=== PATIENT | male | born 1960 | race African-American/Black ===

== ENCOUNTER 2018-03-07 12:02 | Inpatient (IN) | payer OTHER ==
[2018-03-07] MEDS: CEFAZOLIN 2 GM/50 ML (PMX) 50 ML IVPB ×2 (06:00→19:59)
[2018-03-07] MEDS: TRANEXAMIC ACID 1,000 MG in NS 100 ML INTRA-OP X1 IVPB (06:00)
[2018-03-07] MEDS: LACTATED RINGER'S 1,000 ML IV* (06:00)
[2018-03-07] MEDS: ACETAMINOPHEN 500 MG TAB PO (06:00)
[~2018-03-07 12:02] MED LIST: GLYCOPYRROLATE 0.4 MG INJ; NEOSTIGMINE 3 MG/3 ML SYRINGE; ROCURONIUM 50 MG INJ; SEVOFLURANE 15 MIN
[2018-03-07] MEDS: DEXAMETHASONE 4 MG/ML 1 ML INJ IV (13:19)
[2018-03-07] MEDS: ACETAMINOPHEN 1000MG/100ML IV 100 ML IVPB (13:19)
[2018-03-07] MEDS ORDERED: CEFAZOLIN 1 GM INJ ×2 (13:34→19:04)
[2018-03-07] MEDS ORDERED: ROCURONIUM 50 MG INJ (13:34)
[2018-03-07] MEDS ORDERED: MIDAZOLAM 1 MG/ML 2 ML INJ (13:34)
[2018-03-07] MEDS ORDERED: FENTAnyl 50 MCG/ML VIAL (13:34)
[2018-03-07] MEDS ORDERED: ROPIVACAINE 0.5 % 30 ML VIAL (13:34)
[2018-03-07] MEDS: PROPOFOL 100 ML (14:28)
[2018-03-07] MEDS ORDERED: KETOROLAC 30 MG INJ (14:47)
[2018-03-07] MEDS ORDERED: DEXAMETHASONE 4 MG/ML 5 ML INJ (14:47)
[2018-03-07] MEDS ORDERED: ONDANSETRON 4 MG INJ (14:47)
[2018-03-07] MEDS ORDERED: METOCLOPRAMIDE 10 MG INJ (14:47)
[2018-03-07] MEDS ORDERED: PHENYLephrine (100 MCG/ML) 5ML SYG ×2 (15:12→15:42)
[2018-03-07] MEDS: POLYMYXIN B 500000 UNIT INJ (15:19)
[2018-03-07] MEDS: BACITRACIN 50000 UNITS INJ (15:19)
[2018-03-07] MEDS: TRANEXAMIC ACID 1,000 MG in NS 100 ML PRE-OP X1 IVPB (15:22)
[2018-03-07] MEDS ORDERED: ALBUMIN HUMAN 5% 250 ML ×2 (17:27→17:44)
[2018-03-07] MEDS ORDERED: NALBUPHINE HCL (10 MG/1 ML) INJ IV (17:30)
[2018-03-07] MEDS ORDERED: EPHEDrine SULFATE 50 MG/5 ML SYG IV (17:30)
[2018-03-07] MEDS ORDERED: METOCLOPRAMIDE 10 MG INJ IV (17:30)
[2018-03-07] MEDS ORDERED: ACETAMINOPHEN 500 MG TAB PO (17:30)
[2018-03-07] MEDS ORDERED: OXYCODONE/ACETAMINOPHEN (5/325) TAB PO ×2 (17:30)
[2018-03-07] MEDS ORDERED: FENTAnyl 50 MCG/ML VIAL IV ×2 (17:30)
[2018-03-07] MEDS ORDERED: NALOXONE (0.4 MG/ML) INJ IV ×2 (17:30→19:30)
[2018-03-07] MEDS ORDERED: HYDROmorphONE 1 MG/5 ML IV SYRINGE IV (17:30)
[2018-03-07] MEDS ORDERED: HYDROCODONE/APAP (5/325) TAB PO (17:30)
[2018-03-07] MEDS ORDERED: LABETALOL HCL 20MG INJ IV (17:30)
[2018-03-07] MEDS ORDERED: ONDANSETRON 4 MG INJ IV ×2 (17:30)
[2018-03-07] MEDS ORDERED: hydrALAzine 20 MG INJ IV (17:30)
[2018-03-07] MEDS ORDERED: MEPERIDINE 25 MG INJ IV (17:30)
[2018-03-07] MEDS ORDERED: PROPOFOL 20 ML (18:07)
[2018-03-07] MEDS ORDERED: ROPIVACAINE 0.2% 20 ML VIAL (18:51)
[2018-03-07] MEDS: LACTATED RINGER'S 1,000 ML IV (19:05)
[2018-03-07] MEDS ORDERED: PROPOFOL 100 ML (19:05)
[2018-03-07] MEDS ORDERED: BISACODYL 10 MG SUPP PR (19:30)
[2018-03-07] MEDS ORDERED: oxyCODONE 5 MG TAB PO ×2 (19:30)
[2018-03-07] MEDS ORDERED: NACL 0.9% 3 ML SYG IV (19:30)
[2018-03-07] MEDS: DIPHENHYDRAMINE 50 MG INJ IV (19:40)
[2018-03-07] MEDS: HYDROmorphONE 1 MG/5 ML IV SYRINGE IV ×2 (19:40→19:46)
[2018-03-07] MEDS: FENTAnyl 50 MCG/ML VIAL IV (20:08)
[2018-03-07] MEDS: GABAPENTIN 100 MG CAP PO (21:53)
[2018-03-07] MEDS: KETOROLAC 15 MG INJ IV (21:53)
[2018-03-07] MEDS: oxyCODONE 5 MG TAB PO (23:54)
[2018-03-08 00:47] LABS: ADD UMIC NO; UR ASCORBIC ACID NEGATIVE (NEGATIVE); UR BILIRUBIN (Dip) NEGATIVE (NEGATIVE); UR BLOOD (Dip) NEGATIVE (NEGATIVE); UR CLARITY CLEAR (CLEAR); UR COLOR STRAW (YELLOW); UR GLUCOSE (Dip) NEGATIVE (NEGATIVE); UR KETONES (Dip) NEGATIVE (NEGATIVE); UR LEUKOCYTE ESTERASE (Dip) NEGATIVE Leu/ul (NEGATIVE); UR NITRITE (Dip) NEGATIVE (NEGATIVE); UR SPECIFIC GRAVITY (Dip) 1.009 (1.003-1.030); UR TOTAL PROTEIN (Dip) NEGATIVE (NEGATIVE); UR UROBILINOGEN (Dip) NEGATIVE (NEGATIVE)
[2018-03-08] MEDS: CEFAZOLIN 2 GM/50 ML (PMX) 50 ML IVPB ×2 (03:05→11:07)
[2018-03-08] MEDS: DIPHENHYDRAMINE 50 MG INJ IV (04:00)
[2018-03-08] MEDS: MAGNESIUM HYDROXIDE 30ML CUP PO (04:11)
[2018-03-08] MEDS: KETOROLAC 15 MG INJ IV ×2 (04:11→09:52)
[2018-03-08 04:59] LABS: ADD MAN DIFF? NO
[2018-03-08 05:04] LABS: WHITE BLOOD COUNT 12.7 10^3/ul (4.8-10.8)
[2018-03-08 05:05] LABS: BASOPHILS % 0.1 % (0.0-2.0); HEMATOCRIT 29.6 % (42.0-52.0); HEMOGLOBIN 10.1 g/dl (14.0-18.0); LYMPHOCYTES # 1.1 10^3/ul (0.8-2.9); LYMPHOCYTES % 8.3 % (15.0-51.0); MEAN CORPUSCULAR HEMOGLOBIN 29.6 pg (29.0-33.0); MEAN CORPUSCULAR HGB CONC 34.1 g/dl (32.0-37.0); MEAN CORPUSCULAR VOLUME 86.8 fl (82.0-101.0); MEAN PLATELET VOLUME 9.7 fl (7.4-10.4); MONOCYTE # 0.5 10^3/ul (0.3-0.9); MONOCYTES % 3.9 % (0.0-11.0); NEUTROPHIL # 11.1 10^3/ul (1.6-7.5); NEUTROPHILS % 86.9 % (39.0-77.0); PLATELET COUNT 136 10^3/UL (140-415); RED BLOOD COUNT 3.41 10^6/ul (4.70-6.10); RED CELL DISTRIBUTION WIDTH 12.4 % (11.5-14.5)
[2018-03-08] MEDS: PANTOPRAZOLE (EC) 40 MG TAB PO (05:13)
[2018-03-08 05:23] LABS: ANION GAP 12 (5-13); BLOOD UREA NITROGEN 17 mg/dl (7-20); CALCIUM 8.9 mg/dl (8.4-10.2); CARBON DIOXIDE 24 mmol/L (21-31); CHLORIDE 109 mmol/L (97-110); CREATININE 0.99 mg/dl (0.61-1.24); Estimated GFR > 60 mL/min (>60); GLUCOSE 126 mg/dl (70-220); POTASSIUM 4.5 mmol/L (3.5-5.1); SODIUM 145 mmol/L (135-144)
[2018-03-08] MEDS: LACTATED RINGER'S 1,000 ML IV (07:38)
[2018-03-08] MEDS: CELECOXIB 100 MG CAP PO (09:52)
[2018-03-08] MEDS: DOCUSATE SODIUM 100 MG CAP PO (09:52)
[2018-03-08] MEDS: ASPIRIN (EC) 325 MG TAB PO (09:52)
[2018-03-08] MEDS: GABAPENTIN 100 MG CAP PO ×2 (09:52→13:20)
[2018-03-08] MEDS: SOD CHLORIDE 0.9% 500 ML IV (11:16)
[2018-03-08] MEDS ORDERED: ONDANSETRON 4 MG INJ IV (19:30)
[2018-03-08] MEDS ORDERED: ATORVASTATIN 20 MG TAB PO (21:00)
[2018-03-08] MEDS ORDERED: NON-FORMULARY/PATIENT OWN MED (Simvastatin 40 MG) PO (21:00)
== END 2018-03-08 17:56 | disposition left against medical advice (07) | DRG 468 ==
LOC: REC 12:02 → MS1 20:47
PROC: 0SR903A Replacement of Right Hip Joint with Ceramic Synthetic Substitute, Uncemented, Open Approach (ICD-10-PCS; principal; 2018-03-07 14:28)
PROC: 0SP90JZ Removal of Synthetic Substitute from Right Hip Joint, Open Approach (ICD-10-PCS; 2018-03-07 14:28)
DX: T84.84XA Pain due to internal orthopedic prosthetic devices, implants and grafts, initial encounter (principal); T84.091A Other mechanical complication of internal left hip prosthesis, initial encounter; Z96.641 Presence of right artificial hip joint; E78.5 Hyperlipidemia, unspecified; D64.9 Anemia, unspecified; I95.9 Hypotension, unspecified; R42 Dizziness and giddiness
CPT/HCPCS: 72170; 73500; 80048; 81003; 85025; 86850; 86900; 86901; 86920; 87070; 87075; 87086; 87102; 87116; 88300; 97116; 97161; 97165; 97530